=== PATIENT | female | born 1985 | race Caucasian/White ===

== ENCOUNTER 2017-05-22 05:21 | Day surgery (SDC) | payer OTHER ==
[2017-05-15 16:44] VITALS: BMI 27.4
--- NOTE | 2017-05-22 14:54 | HP ---
Past Medical History - Primary Care Physician PCP:: Darin Donato - Admission Chief Complaint: 32yo P2 female admitted for laparoscopic bilaterla salpingectomy. Pt w/o complaints. History of Present Illness: Pt requested permanent sterilization. She has a FHx of uterine vs. ovarian cancer and requested excision of both Fallopian tubes, if possible. History Source: Patient Limitations to Obtaining History: No Limitations, Language Barrier (caser used.) - Past Medical History NUTTER UP: No: Alzheimer's, CVA, Dementia, Migraine, Multiple Sclerosis, Peripheral Neuropathy, Parkinson's, Seizure, Syncope, TIA, Vertigo, Other Cardiovascular: No: AFIB, Aneurysm, Aortic Insufficiency, Aortic Stenosis, CAD, CHF, Deep Vein Thrombosis, HTN, Hyperlipdemia, WI, Mitral Insufficiency, Mitral Stenosis, Murmur, Pulmonary Hypertension, Other Pulmonary: No: Asthma, Bronchitis, Cancer, COPD, O2 Dependent, Pneumonia, Previously Intubated, Pulmonary Embolus, Pulmonary Fibrosis, Sleep Apnea, Other Gastrointestinal: No: Ascites, Cancer, Constipation, Crohn's Disease, Diverticulitis, Diverticulosis, Esophageal Varices, Gastritis, GERD, GI Bleed, Hemorrhoids, Hiatal Hernia, Inflamatory Bowel Disease, Irritable Bowel Disease, Pancreatitis, Peptic Ulcer Disease, Ulcerative Colitis, Other Hepatobiliary: No: Cirrhosis, Cholelithiasis, Cholecystitis, Choledocholithiasis , Hepatitis A, Hepatitis B, Hepatitis C, Other Renal/: No: Renal Failure, Renal Inusuff, BPH, Cancer, Hematuria, Hemodialysis , Neurogenic Bladder, Renal Calculi, UTI, Other ...: 4 ...Para: 2 ...Spon : 2 Heme/Onc: No: Anemia, B12 Deficiency, Bleeding Disorder, Cancer, Current Chemotherapy, Current Radiation Therapy, Hemochromatosis, Hypercoaguable State, Myeloproliferative Synd, Sickle Cell Disease, Sickle Cell Trait, Thrombocytopenia, Other Infectious Disease: No: AIDS, C-Diff, Herpes Zoster, HIV, MRSA, STD's, Tuberculosis, VREF, Other Psych: No: Addictions, Anxiety, Bipolar, Depression, Panic, Psychosis, Schizophrenia, Other Musculoskeletal: No: Bursitis, Chronic low back pain, Hemiparesis, Hemiplegia, Osteoarthritis, Paraplegia, Other Rheumatology: No: Fibromyalgia, Gout, Lupus, Rheumatoid Arthritis, Sarcoidosis, Vasculitis, Other ENT: No: Allergic Rhinitis, Sinusitis, Other Endocrine: No: Freestone's Disease, Bedford's Disease, Diabetes Insipidus, Diabetes Mellitus, Hyperparathyroidism, Hyperthyroidism, Hypothyroidism, Osteopenia, SIADH, Other Dermatology: No: Basal Cell, Cellulitis, Eczema, Melanoma, Psoriasis, Squamous Cell, Other - Past Surgical History Hx Myomectomy: No Hx Transabdominal Cerclage: No Additional Surgical History: D&C - Smoking History Smoking history: Never smoked Have you smoked in the past 12 months: No - Alcohol/Substance Use Hx Alcohol Use: Yes (SOCIAL) History of Substance Use: reports: None - Social History Usual Living Arrangement: Yes: With Spouse, With Child ADL: Independent History of Recent Travel: No Home Medications - Allergies Allergies/Adverse Reactions: Allergies Allergy/AdvReac Type Severity Reaction Status Date / Time Penicillins Allergy Rash Verified 05/22/17 13:49 - Home Medications Home Medications: Ambulatory Orders NK [No Known Home Medication] 05/15/17 Family Disease History - Family Disease History Family Disease History: CA: Mother (uterus vs ovaries) Review of Systems - Review of Systems Constitutional: reports: No Symptoms Eyes: reports: No Symptoms HENT: reports: No Symptoms Neck: reports: No Symptoms Cardiovascular: reports: No Symptoms Respiratory: reports: No Symptoms Gastrointestinal: reports: No Symptoms Genitourinary: reports: No Symptoms Breasts: reports: No Symptoms Reported Musculoskeletal: reports: No Symptoms Integumentary: reports: No Symptoms Neurological: reports: No Symptoms Endocrine: reports: No Symptoms Hematology/Lymphatic: reports: No Symptoms Psychiatric: reports: No Symptoms Pain Intensity: 0 Physical Exam-SERVICE STATION HELPER Vital Signs: Vital Signs Temperature 98.0 F 05/22/17 13:47 Pulse Rate 62 05/22/17 13:47 Respiratory Rate 20 05/22/17 13:47 Blood Pressure 116/65 05/22/17 13:47 O2 Sat by Pulse Oximetry (%) 99 05/22/17 13:46 Constitutional: Yes: Well Nourished, No Distress, Calm Eyes: Yes: WNL, Conjunctiva Clear, EOM Intact HENT: Yes: WNL, Atraumatic, Normocephalic Neck: Yes: WNL, Supple, Trachea Midline Cardiovascular: Yes: WNL, Regular Rate and Rhythm Respiratory: Yes: WNL, Regular, CTA Bilaterally Gastrointestinal: Yes: WNL, Normal Bowel Sounds, Soft ...Rectal Exam: Yes: Deferred Renal/: Yes: WNL Pelvis: Yes: WNL External Genitalia: Yes: Normal Vaginal Exam: Yes: Normal Cervix: Yes: Normal Uterus: Yes: Normal Breast(s): Yes: WNL Musculoskeletal: Yes: WNL Extremities: Yes: WNL Edema: No Integumentary: Yes: WNL Neurological: Yes: WNL, Alert, Oriented ...Motor Strength: WNL Psychiatric: Yes: WNL, Alert, Oriented Assessment/Plan The pt insists on sterilization and prefers bilateral excision of the Fallopian tubes. Risks, benefits, alternatives of surgery were discussed at length. Options of no treatment or non-surgical treatment were discussed. Patient prefers to proceed with surgery. Risks of surgery, including but not limited to infection, bleeding, trauma/injury to underlying organs and structures (e.g. ureter, bladder, bowel, etc.) were explained. Possible need for blood transfusion or additional surgery to repair any injuries, were discussed. Patient understands that all surgical treatments have risks and no guarantees can be provided. The patient requested to proceed with surgery. A caser was used for discussion.
[2017-05-22] MEDS ORDERED: PROPOFOL 20 ML ONE (15:31)
[2017-05-22] MEDS ORDERED: ROCURONIUM BROMIDE 50 MG/5 ML VIAL ONE ×2 (15:31→15:43)
[2017-05-22] MEDS ORDERED: MIDAZOLAM HCL 2 MG/2 ML SINGLE DOSE VIAL ONE ×2 (15:32→16:38)
[2017-05-22] MEDS ORDERED: ceFAZolin SODIUM 1 GM VIAL IVPB ONE (15:55)
[2017-05-22] MEDS ORDERED: ceFAZolin SODIUM 1 GM VIAL ONE (15:57)
[2017-05-22] MEDS ORDERED: DEXAMETHASONE SOD PHOSPHATE 4 MG/1 ML VIAL ONE (16:13)
[2017-05-22] MEDS ORDERED: BUPIVACAINE HCL/PF (5 MG/ML) 30 ML VIAL IJ ONE (16:16)
[2017-05-22] MEDS ORDERED: NEOSTIGMINE METHYLSULFATE 0.5 MG/ML - 10 ML MDV ONE (16:23)
[2017-05-22] MEDS ORDERED: GLYCOPYRROLATE 0.2 MG/1 ML VIAL ONE (16:24)
[2017-05-22] MEDS ORDERED: KETOROLAC TROMETHAMINE 30 MG/1 ML VIAL ONE (16:52)
[2017-05-22] MEDS ORDERED: ONDANSETRON 4 MG/2 ML VIAL IVPUSH PRN (17:03)
[2017-05-22] MEDS ORDERED: oxyCODONE HCL 5 MG TABLET PO PRN (17:03)
[2017-05-22] MEDS ORDERED: KETOROLAC TROMETHAMINE 30 MG/1 ML VIAL IVPUSH PRN (17:04)
[2017-05-22] MEDS ORDERED: LACTATED RINGERS SOLUTION 1,000 ML IV SCH (17:15)
--- NOTE | 2017-05-22 18:40 | OP ---
Operative Note - Note: Operative Date: 05/22/17 Pre-Operative Diagnosis: Sterilization, FHx of uterine/ovarian cancer Operation: Bilateral complete salpingectomy Findings: Normal uterus, ovaries and Fallopian tubes Post-Operative Diagnosis: Same as Pre-op Surgeon: Darin Donato Brake Drum Molder: Paula Blanton Anesthesiologist/SCREEN PRINTING LOADER UNLOADER: Alexa Chavis Anesthesia: General Specimens Removed: Both Fallopian tubes Estimated Blood Loss (mls): 5 Drains & Tubes with Location: Mcbride Cath Drains, Volume Out (mls): 350 Blood Volume Replaced (mls): 0 Fluid Volume Replaced (mls): 900 Operative Report Dictated: Yes
[2017-05-22 18:43] VITALS: TEMP 98.3
[2017-05-22 20:56] VITALS: BP 114/77; PULSE 71
--- NOTE | 2017-05-22 22:20 | OP ---
DATE OF OPERATION: 05/22/2017 PREOPERATIVE DIAGNOSES: Sterilization; family history of uterine/ovarian cancer. POSTOPERATIVE DIAGNOSES: Sterilization; family history of uterine/ovarian cancer. PROCEDURE: Laparoscopic bilateral complete salpingectomy. SURGEON: Florina Donato MD CHART CLERK: Paula Blanton MD NECESSITY FOR CHART CLERK: Complexity of surgery as well as patient's obesity. ANESTHESIOLOGIST: Alexa Chavis DO ANESTHESIA: General endotracheal. COMPLICATIONS: None. INTRAVENOUS FLUIDS: 900 mL. URINE OUTPUT: 350 mL of clear urine at the end of the procedure. PATHOLOGY: Bilateral fallopian tubes. FINDINGS: Examination under anesthesia revealed a small, anteverted uterus. Laparoscopy revealed a small, anteverted uterus with normal fallopian tubes and ovaries. Liver, stomach, gallbladder, visualized portion of bowel were all within normal limits. Uncomplicated surgery. PROCEDURE: The patient was met preoperatively. Risks, benefits, alternatives of surgery were discussed in detail. All questions were answered. The patient was then brought to the OR with the IV running. She was placed on the surgical table in the supine position. The general endotracheal anesthesia was achieved without difficulty. The patient was then placed in a dorsal lithotomy position using adjustable Esteban stirrups. She was prepped and draped in the usual sterile fashion. A Mcbride catheter was left to drain to gravity. A HUMI uterine manipulator was inserted sterilely. The surgeons then proceeded with the laparoscopy. A 5-mm intraumbilical incision was made with the knife. A Veress needle was introduced through the umbilicus into the peritoneal cavity without complications. Pneumoperitoneum was produced with intraabdominal pressure limited to 15 mmHg. The Veress needle was then removed. A 5-mm OptiView trocar was inserted through the umbilical incision under direct visualization. Atraumatic placement was confirmed. A second 5-mm incision was made with the knife in the left lower quadrant and a 5-mm trocar was advanced under direct laparoscopic visualization. A third 5-mm incision was made in the right lower quadrant and a 5-mm trocar was advanced under direct laparoscopic visualization. Atraumatic placement was confirmed. A LigaSure instrument was then used to excise both fallopian tubes for their entire length without complications. Good hemostasis was noted. Both fallopian tubes were removed and sent to pathology for evaluation. Once the procedure was completed, all of the instruments were removed from the patient, pneumoperitoneum was reduced. Sponge, laparotomy pad, instrument counts were correct. The abdominal incisions were closed with a 4-0 Biosyn suture for the skin. The Mcbride catheter and HUMI were removed in the OR. The patient was returned to supine position and transferred to recovery room awake and in stable condition. FLORINA DONATO M.D. [id number]
--- NOTE | 2017-05-24 13:52 | PATH ---
Surgical Pathology Report Patient Name: ISSA MEDINA [facility]. Rec. #: [id number] /Age/Gender: 1985 (Age: 32) / F Account: [id number] Location: [facility] SURGICAL Taken: 05/22/2017 Received: 05/23/2017 Reported: 05/24/2017 Physicians: Darin Donato M.D. Specimen(s) Received A: LEFT FALLOPIAN TUBE B: RIGHT FALLOPIAN TUBE Clinical History Voluntary sterilization Final Diagnosis A. FALLOPIAN TUBE, LEFT, SALPINGECTOMY: FIMBRIATED FALLOPIAN TUBE WITH COMPLETE CROSS SECTION. B. FALLOPIAN TUBE, RIGHT, SALPINGECTOMY: FIMBRIATED FALLOPIAN TUBE WITH COMPLETE CROSS SECTION AND PARATUBAL CYST Electronically Signed Dre Azul M.D. Gross Description A. Received in formalin labeled "left fallopian tube" is a 4.5 cm in length fimbriated portion of fallopian tube. The outer surface is kevin purple and smooth. Sectioning reveals an unremarkable lumen. [employer] sections are submitted in one cassette. B. Received in formalin labeled "right fallopian tube" is a 4.5 cm in length fimbriated portion of fallopian tube. The outer surface is kevin purple and smooth with a 0.4 cm in greatest dimension paratubal cyst attached to the fimbria. Sectioning reveals an unremarkable lumen. [employer] sections are submitted in 2 cassettes as follows: 1-fimbria with paratubal cyst; 2-cross sections of fallopian tube. 05/23/2017 [facility]05/23/2017
== END 2017-05-22 19:45 | disposition home or self-care (01) ==
LOC: JASU-SURG 05:21
PROVIDERS: ATTEND Obstetrics & Gynecology
PROC: 0UB74ZZ Excision of Bilateral Fallopian Tubes, Percutaneous Endoscopic Approach (ICD-10-PCS; principal; 2017-05-22 14:30)
DX: Z30.2 Encounter for sterilization (principal); Z80.8 Family history of malignant neoplasm of other organs or systems
CPT/HCPCS: 84703; 88302-TC; 94760